=== PATIENT | male | born 1955 | race Caucasian/White ===

== ENCOUNTER → 2019-05-29 | Outpatient (CLI) | payer BC ==
[~2019-05-29] MED LIST: AMLODIPINE5 MG PO; ATOXIMETIN-B1 CAP PO; FOLIC ACID 40400 MCG PO; GLUCOPHAGE850 MG/TAB PO; IRON325 M1 PO; NORCO 325 MG-7.1 TAB PO; ROXICODONE 55 MG/TAB PO; SAW PALMETTO1 CAP PO; SAW PALMETTO6 X SL; ULTRAM 50MG TAB50 MG PO; VITAMIN C BUFF500 MG PO; XARELTO10 MG PO; ZESTRIL10 MG PO
[2019-05-29 15:49] LABS: HEMATOCRIT 48.3 % (42.0-52.0); HEMOGLOBIN 17.2 g/dl (13.5-18.0); MEAN CELL VOLUME 90 fl (80.0-100.0); MEAN CORPUSCULAR HEMOGLOBIN 32 pg (27.0-31.0); MEAN CORPUSCULAR HGB CONC 36 g/dl (33.0-37.0); MEAN PLATELET VOLUME 9.1 fl (7.4-10.4); PLATELET COUNT 261 K/mm3 (130-400); RED BLOOD COUNT 5.35 M/mm3 (4.20-5.60)
[2019-05-29 16:25] LABS: ERYTHROCYTE SEDIMENTATION RATE 1 mm/hr (0-30)
== END ==
LOC: COL.LAB 15:05
PROVIDERS: Orthopaedic Surgery
DX: M25.462 Effusion, left knee (principal)

== ENCOUNTER 2021-10-19 11:01 | Outpatient (RCR) | payer BC | END 2021-10-28 | disposition home or self-care (01) | LOC: MKS.ESL.PT | DX: M54.50 Low back pain, unspecified (principal) ==